=== PATIENT | female | born 1960 | race Caucasian/White ===

== ENCOUNTER 2016-12-28 15:05 | Observation (INO) | payer MEDICARE ==
[~2016-12-28 15:05] MED LIST: LANTUS2P SQ; LISI2.5T3 PO; LORA-474 PO; METF1000 PO; PEDISOL2 OROPHARYNG; REGL5TAB PO; VITA100036 PO
[2016-12-28 17:00] VITALS: BP 164/84; PULSE 80; RESP 21; TEMP 98.4; O2SAT 97
[2016-12-28] MEDS ORDERED: ONDANSETRON HCL 4 MG/2 ML VIAL IVP PRN (18:00)
[2016-12-28] MEDS ORDERED: ACETAMINOPHEN 325 MG TAB PO PRN (18:00)
[2016-12-28] MEDS ORDERED: NALOXONE HCL 0.4 MG/ML AMP IV PUSH PRN (18:00)
[2016-12-28] MEDS ORDERED: SODIUM CHLORIDE 0.9% FLUSH 10 ML FLUSH IV FLUSH PRN (18:00)
--- NOTE | 2016-12-28 18:00 | HHI.HP ---
[facility]Staff Ad[facility] Diagnosis Diagnoses: Chief Complaint: Abdominal pain Travel History International Travel<30 Days: No Contact w/Intl Traveler <30 Da: No Traveled to Known Affected Are: No History of Present Illness This is a pleasant 56 y/o female who was seen at [facility] due to Abdominal pain, Intractable nausea and vomit the patient is having dry heaves, diffuse abdominal pain, cramps and diarrhea, Patient states she thinks she has food poisoning She is having about 5 episodes a day of vomiting and diarrhea. She also reports some decreased urine output and sweating. Her primary doctor is Dr. Bhandari. She was just seen here 2 nights ago and diagnosed with gastroenteritis. the patient states her Nausea, vomit or diarrhea started last Saturday perhaps she had some food left in her fridge after the [place] and she did not have power. Review of Systems Constitutional: DENIES: Fever, Chills, Change in appetite Endocrine: DENIES: Heat/cold intolerance Eyes: DENIES: Blurred vision, Eye pain Gastrointestinal: COMPLAINS OF: Diarrhea, Nausea, Vomiting Except as stated in HPI: all other systems reviewed are Neg Past Family Social History Past Medical History Hypertension Hyperlipidemia DM II Past Surgical History C Section x 2 Reported Medications Reported Meds & Active Scripts Active Pedialyte (Oral Electrolytes) 1 Pam Pam 8 Oz OROPHARYNG Q2HR Ativan (Lorazepam) 1 Mg Tab 1 Mg PO BID PRN Reglan (Metoclopramide HCl) 5 Mg Tab 5 Mg PO QID Reported Vitamin D3 (Cholecalciferol) 1,000 Unit Cap 1,000 Units PO DAILY Lisinopril 2.5 Mg Tab 2.5 Mg PO DAILY Metformin (Metformin HCl) 1,000 Mg Tab 1,000 Mg PO BIDPC With meals Lantus Inj (Insulin Glargine) 1,000 Unit/10 Ml Vial 25 Units SQ HS Allergies: Coded Allergies: bee venom protein (honey bee) (Verified Allergy, Intermediate, 12/28/16) latex (Verified Allergy, Unknown, 12/28/16) Active Ordered Medications Current Medications Medications (Trade) Dose Ordered Sig/Seferino Route Start Time Stop Time Status Last Admin Sodium Chloride 1,000 ml @ 100 mls/hr Q10H IV 12/28/16 18:00 (NS Flush) 2 ml UNSCH PRN IV FLUSH 12/28/16 18:00 (NS Flush) 2 ml BID IV FLUSH 12/28/16 21:00 (Tylenol) 650 mg Q4H PRN PO 12/28/16 18:00 (Zofran Inj) 4 mg Q6H PRN IVP 12/28/16 18:00 (Heparin Inj) 5,000 units Q8H SQ 12/28/16 18:00 (Narcan Inj) 0.4 mg UNSCH PRN IV PUSH 12/28/16 18:00 (Ativan) 1 mg BID PRN PO 12/28/16 18:15 (Prinivil) 2.5 mg DAILY PO 12/29/16 09:00 (NovoLIN R SUPPLEMENTAL SCALE) 1 ACHS SLIDING SCALE SQ 12/28/16 21:00 (Pill Splitter) 1 ea UNSCH PRN OTHER 12/28/16 18:30 Family History Father with CAD. Social History Lives in her house with her and daughter Miss Sunita Rubi Denies any toxic habits. Physical Exam Physical Exam GENERAL: Well developed, Morbid Obese patient. SKIN: Focused skin assessment warm/dry. HEAD: Atraumatic. Normocephalic. EYES: Pupils equal and round. No scleral icterus. No injection or drainage. ENT: No nasal bleeding or discharge. Mucous membranes pink and moist. NECK: Trachea midline. No JVD. CARDIOVASCULAR: Regular rate and rhythm. No murmur appreciated. RESPIRATORY: No accessory muscle use. Clear to auscultation. Breath sounds equal bilaterally. GASTROINTESTINAL: Abdomen soft, obese, with mild diffuse abdominal tenderness palpation. MUSCULOSKELETAL: No obvious deformities. No clubbing. No cyanosis. No edema. NEUROLOGICAL: Awake and alert. No obvious cranial nerve deficits. Motor grossly within normal limits. Normal speech. PSYCHIATRIC: Appropriate mood and affect; insight and judgment normal. Caprini VTE Risk Assessment Caprini VTE Risk Assessment: No/Low Risk (score <= 1) Caprini Risk Assessment Model Point Value = 1 Point Value = 2 Point Value = 3 Point Value = 5 Age 41-60 Minor surgery BMI > 25 kg/m2 Swollen legs Varicose veins or History of unexplained or recurrent spontaneous Oral contraceptives or hormone replacement Sepsis (< 1 month) Serious lung disease, including pneumonia (< 1 month) Abnormal pulmonary function Acute myocardial infarction Congestive heart failure (< 1 month) History of inflammatory bowel disease Medical patient at bed rest Age 61-74 Arthroscopic surgery Major open surgery (> 45 min) Laparoscopic surgery (> 45 min) Malignancy Confined to bed (> 72 hours) Immobilizing plaster cast Central venous access Age >= 75 History of VTE Family history of VTE Factor V Leiden Prothrombin [id number] Lupus anticoagulant Anticardiolipin antibodies Elevated serum homocysteine Heparin-induced thrombocytopenia Other congenital or acquired thrombophilia Stroke (< 1 month) Elective arthroplasty Hip, pelvis, or leg fracture Acute spinal cord injury (< 1 month) Prophylaxis Regimen Total Risk Factor Score Risk Level Prophylaxis Regimen 0-1 Low Early ambulation 2 Moderate Order ONE of the following: *Sequential Compression Device (SCD) *Heparin 5000 units SQ BID 3-4 Higher Order ONE of the following medications: *Heparin 5000 units SQ TID *Enoxaparin/Lovenox 40 mg SQ daily (WT < 150 kg, CrCl > 30 mL/min) *Enoxaparin/Lovenox 30 mg SQ daily (WT < 150 kg, CrCl > 10-29 mL/min) *Enoxaparin/Lovenox 30 mg SQ BID (WT < 150 kg, CrCl > 30 mL/min) AND/OR *Sequential Compression Device (SCD) 5 or more Highest Order ONE of the following medications: *Heparin 5000 units SQ TID (Preferred with Epidurals) *Enoxaparin/Lovenox 40 mg SQ daily (WT < 150 kg, CrCl > 30 mL/min) *Enoxaparin/Lovenox 30 mg SQ daily (WT < 150 kg, CrCl > 10-29 mL/min) *Enoxaparin/Lovenox 30 mg SQ BID (WT < 150 kg, CrCl > 30 mL/min) AND *Sequential Compression Device (SCD) Assessment and Plan Assessment and Plan Hypertensive Urgency systolic 230 1. Intractable nausea and vomit and diarrhea, will give Supportive care, IV fluids NPO Gastric protection and follow laboratory, replace Electrolytes as needed 2. Hypertensive Urgency in a patient with Hypertension will continue Home medicines and give Clonidine as needed 3. Hyperlipidemia will follow Lipid profile 4. DM II on sliding scale, she is NPO, Hemoglobin A1C 5. Morbid Obesity strongly recommended diet and exercise. DVT prophylaxis with Heparin complete laboratory and follow Code Status Full Code. Discussed Condition With Doctor Marko Almodovar from [facility] Patient and her Daughter Miss Sunita Rubi all questions answered to the best of my abilities. Jw Sena MD Dec 28, 2016 18:00
[2016-12-28] MEDS ORDERED: LORazepam 1 MG TAB PO PRN (18:15)
[2016-12-28] MEDS ORDERED: PILL SPLITTER OTHER PRN (18:30)
[2016-12-28] MEDS: HEPARIN SODIUM - SQ 10,000 UNITS/ML VIAL SQ SCH (18:34)
[2016-12-28] MEDS: SODIUM CHLOR 0.9% 1000 ML INJ 1,000 ML IV SCH (18:34)
[2016-12-28] MEDS ORDERED: cloNIDine HCL 0.1 MG TAB PO PRN (18:45)
[2016-12-28 20:00] VITALS: BP 122/58; PULSE 66; PULSE 71; RESP 16; TEMP 99.6; O2SAT 94
[2016-12-28 20:54] LABS: HDL CHOLESTEROL 39.5 MG/DL (40.0-60.0); LDL CHOLESTEROL 63 MG/DL (0-99)
[2016-12-28 21:00] VITALS: PULSE 68
[2016-12-28] MEDS: INSULIN NovoLIN REGULAR SUPPLEMENTAL SCALE SQ SCH (21:00)
[2016-12-28] MEDS: SODIUM CHLORIDE 0.9% FLUSH 10 ML FLUSH IV FLUSH SCH (21:05)
[2016-12-28] MEDS: SUCRALFATE 1 GM TAB PO SCH (21:05)
[2016-12-28] MEDS: PANTOPRAZOLE SODIUM 40 MG VIAL IV PUSH SCH (21:06)
[2016-12-28 21:55] LABS: HEMOGLOBIN A1a 1.1 %; HEMOGLOBIN Ao 82.7 %; HEMOGLOBIN F 1.2 %; HEMOGLOBIN LA1C 2.4 %; HEMOGLOBIN P3 4.4 %
[2016-12-28 22:00] VITALS: PULSE 72
[2016-12-28 23:00] VITALS: PULSE 68
[2016-12-29] VITALS (15 sets, daily range): BP systolic 90–147; BP diastolic 52–65; PULSE 51–74; RESP 16–20; TEMP 97.8–98.7; O2SAT 90–98
[2016-12-29] MEDS: HEPARIN SODIUM - SQ 10,000 UNITS/ML VIAL SQ SCH ×2 (01:43→08:21)
[2016-12-29] MEDS: SODIUM CHLOR 0.9% 1000 ML INJ 1,000 ML IV SCH (01:43)
[2016-12-29 06:06] LABS: AUTOMATED NEUTROPHIL # 6.3 TH/MM3 (1.8-7.7); BASOPHIL # 0.1 TH/MM3 (0-0.2); BASOPHIL % 0.6 % (0.0-2.0); EOSINOPHIL # 0.1 TH/MM3 (0-0.4); EOSINOPHIL % 0.8 % (0.0-4.0); HEMATOCRIT 37.5 % (35.0-46.0); HEMO FLAGS DIFF FINAL; LYMPH % 36.7 % (9.0-44.0); LYMPHOCYTE # 4.5 TH/MM3 (1.0-4.8); MEAN CELL VOLUME 93.4 FL (80.0-100.0); MEAN CORPUSCULAR HEMOGLOBIN 30.9 PG (27.0-34.0); MEAN CORPUSCULAR HGB CONC 33.1 % (32.0-36.0); MONO % 10.5 % (0.0-8.0); NEUT % 51.4 % (16.0-70.0); PLATELET COUNT 311 TH/MM3 (150-450); RED BLOOD COUNT 4.01 MIL/MM3 (4.00-5.30); RED CELL DISTRIBUTION WIDTH 14.9 % (11.6-17.2); WHITE BLOOD COUNT 12.2 TH/MM3 (4.0-11.0)
[2016-12-29] MEDS: PANTOPRAZOLE SODIUM 40 MG VIAL IV PUSH SCH (06:27)
[2016-12-29 07:50] LABS: ALT (GPT) 21 U/L (10-53); ANION GAP 6 MEQ/L (5-15); AST (GOT) 12 U/L (15-37); BICARBONATE 27.2 MEQ/L (21.0-32.0); BLOOD UREA NITROGEN 13 MG/DL (7-18); CHLORIDE 107 MEQ/L (98-107); GLOMERULAR FILTRATION RATE 69 ML/MIN (>89); POTASSIUM 3.5 MEQ/L (3.5-5.1); SODIUM (NA) 140 MEQ/L (136-145)
[2016-12-29 07:52] LABS: ALKALINE PHOSPHATASE 62 U/L (45-117); TOTAL BILIRUBIN ADULT 0.8 MG/DL (0.2-1.0)
[2016-12-29] MEDS: INSULIN NovoLIN REGULAR SUPPLEMENTAL SCALE SQ SCH ×2 (08:00→12:00)
[2016-12-29] MEDS: SUCRALFATE 1 GM TAB PO SCH ×2 (08:20→12:16)
[2016-12-29] MEDS: SODIUM CHLORIDE 0.9% FLUSH 10 ML FLUSH IV FLUSH SCH (08:20)
[2016-12-29] MEDS ORDERED: LISINOPRIL 5 MG TAB PO SCH (09:00)
--- NOTE | 2016-12-29 11:38 | HHI.PR ---
Subjective Remarks This is a pleasant 56 y/o female who was seen at [facility] due to Abdominal pain, Intractable nausea and vomit the patient is having dry heaves, diffuse abdominal pain, cramps and diarrhea, Patient states she thinks she has food poisoning She is having about 5 episodes a day of vomiting and diarrhea. She also reports some decreased urine output and sweating. Her primary doctor is Dr. Bhandari. She was just seen here 2 nights ago and diagnosed with gastroenteritis. the patient states her Nausea, vomit or diarrhea started last Saturday perhaps she had some food left in her fridge after the [place] and she did not have power. 12/29: Seen in her bedroom stable in the presence of her Daughter and another relative, replacing potassium she had Potassium level 3.5, will advance diet and discharge Home, her blood pressure is controlled. No nausea, vomit or diarrhea. Objective Vital Signs Date Time Temp Pulse Resp B/P (MAP) Pulse Ox O2 Delivery O2 Flow Rate FiO2 12/29/16 11:00 62 12/29/16 11:00 98.5 63 20 90/65 (73) 98 12/29/16 10:00 57 12/29/16 09:57 97.8 59 20 147/60 (89) 95 12/29/16 09:00 60 12/29/16 08:00 68 12/29/16 07:00 51 12/29/16 06:00 70 12/29/16 05:00 60 12/29/16 04:00 65 12/29/16 04:00 98.2 63 16 122/56 (78) 93 12/29/16 03:00 74 12/29/16 02:00 58 12/29/16 01:00 62 12/29/16 00:00 98.7 66 16 112/52 (72) 90 12/29/16 00:00 62 12/28/16 23:00 68 12/28/16 22:00 72 12/28/16 21:00 68 12/28/16 20:00 66 12/28/16 20:00 99.6 71 16 122/58 (79) 94 12/28/16 17:00 98.4 80 21 164/84 (110) 97 I/O 12/28/16 12/28/16 12/28/16 12/29/16 12/29/1612/29/17 07:00 15:00 23:00 07:00 15:00 23:00 Intake Total 1399 ml Balance 1399 ml Intake Oral 240 ml IV Total 1159 ml # Voids 3 Result Diagram: 12/29/16 0410 12/29/16 0410 Procedures None Other Results Laboratory Tests Test 12/28/16 19:48 12/29/16 01:08 12/29/16 04:10 Hemoglobin A1c 6.6 % Triglycerides Level 95 MG/DL Cholesterol Level 121 MG/DL LDL Cholesterol 63 MG/DL HDL Cholesterol 39.5 MG/DL Cholesterol/HDL Ratio 3.06 RATIO Thyroid Stimulating Hormone 3rd Gen 0.544 uIU/ML Total Creatine Kinase 116 U/L Troponin I 0.03 NG/ML White Blood Count 12.2 TH/MM3 Red Blood Count 4.01 MIL/MM3 Hemoglobin 12.4 GM/DL Hematocrit 37.5 % Mean Corpuscular Volume 93.4 FL Mean Corpuscular Hemoglobin 30.9 PG Mean Corpuscular Hemoglobin Concent 33.1 % Red Cell Distribution Width 14.9 % Platelet Count 311 TH/MM3 Mean Platelet Volume 8.1 FL Neutrophils (%) (Auto) 51.4 % Lymphocytes (%) (Auto) 36.7 % Monocytes (%) (Auto) 10.5 % Eosinophils (%) (Auto) 0.8 % Basophils (%) (Auto) 0.6 % Neutrophils # (Auto) 6.3 TH/MM3 Lymphocytes # (Auto) 4.5 TH/MM3 Monocytes # (Auto) 1.3 TH/MM3 Eosinophils # (Auto) 0.1 TH/MM3 Basophils # (Auto) 0.1 TH/MM3 CBC Comment DIFF FINAL Differential Comment Blood Urea Nitrogen 13 MG/DL Creatinine 0.85 MG/DL Random Glucose 81 MG/DL Total Protein 6.4 GM/DL Albumin 3.1 GM/DL Calcium Level 8.3 MG/DL Alkaline Phosphatase 62 U/L Aspartate Amino Transf (AST/SGOT) 12 U/L Alanine Aminotransferase (ALT/SGPT) 21 U/L Total Bilirubin 0.8 MG/DL Sodium Level 140 MEQ/L Potassium Level 3.5 MEQ/L Chloride Level 107 MEQ/L Carbon Dioxide Level 27.2 MEQ/L Anion Gap 6 MEQ/L Estimat Glomerular Filtration Rate 69 ML/MIN Objective Remarks GENERAL: Well developed, Morbid Obese patient. SKIN: Focused skin assessment warm/dry. HEAD: Atraumatic. Normocephalic. EYES: Pupils equal and round. No scleral icterus. No injection or drainage. ENT: No nasal bleeding or discharge. Mucous membranes pink and moist. NECK: Trachea midline. No JVD. CARDIOVASCULAR: Regular rate and rhythm. No murmur appreciated. RESPIRATORY: No accessory muscle use. Clear to auscultation. Breath sounds equal bilaterally. GASTROINTESTINAL: Abdomen soft, obese, with mild diffuse abdominal tenderness palpation. MUSCULOSKELETAL: No obvious deformities. No clubbing. No cyanosis. No edema. NEUROLOGICAL: Awake and alert. No obvious cranial nerve deficits. Motor grossly within normal limits. Normal speech. PSYCHIATRIC: Appropriate mood and affect; insight and judgment normal. Medications and IVs Current Medications Medications (Trade) Dose Ordered Sig/Seferino Route Start Time Stop Time Status Last Admin Sodium Chloride 1,000 ml @ 100 mls/hr Q10H IV 12/28/16 18:00 12/29/16 01:43 (NS Flush) 2 ml UNSCH PRN IV FLUSH 12/28/16 18:00 (NS Flush) 2 ml BID IV FLUSH 12/28/16 21:00 12/29/16 08:20 (Tylenol) 650 mg Q4H PRN PO 12/28/16 18:00 (Zofran Inj) 4 mg Q6H PRN IVP 12/28/16 18:00 (Heparin Inj) 5,000 units Q8H SQ 12/28/16 18:00 12/29/16 08:21 (Narcan Inj) 0.4 mg UNSCH PRN IV PUSH 12/28/16 18:00 (Ativan) 1 mg BID PRN PO 12/28/16 18:15 (Prinivil) 2.5 mg DAILY PO 12/29/16 09:00 12/29/16 08:20 (NovoLIN R SUPPLEMENTAL SCALE) 1 ACHS SLIDING SCALE SQ 12/28/16 21:00 (Pill Splitter) 1 ea UNSCH PRN OTHER 12/28/16 18:30 (Catapres) 0.1 mg Q6H PRN PO 12/28/16 18:45 (Protonix Inj) 40 mg Q12H IV PUSH 12/28/16 19:00 12/29/16 06:27 (Carafate) 1 gm ACHS PO 12/28/16 21:00 12/29/16 08:20 A/P Assessment and Plan 1. Intractable nausea and vomit and diarrhea, will give Supportive care, IV fluids NPO Gastric protection and follow laboratory, replace Electrolytes as needed, Improved. 2. Hypertensive Urgency in a patient with Hypertension will continue Home medicines and give Clonidine as needed, Improved 3. Hyperlipidemia will follow Lipid profile 4. DM II on sliding scale, she is NPO, Hemoglobin A1C 6.6 5. Morbid Obesity strongly recommended diet and exercise. DVT prophylaxis with Heparin Code Status Full Code. Discussed Condition With Patient and her Daughter Miss Sunita Rubi all questions answered to the best of my abilities. Her other relative and Nurse Polly in the room. Discharge Planning Discharge Home today. Jw Sena MD Dec 29, 2016 11:38
[2016-12-29] MEDS ORDERED: POTASSIUM CHLORIDE 20 MEQ CONTROLLED RELEASE TAB PO ONE (13:00)
[2016-12-29] MEDS ORDERED: CARA1TAB6 PO (13:03)
[2016-12-29] MEDS ORDERED: PROT40TA PO (13:03)
--- NOTE | 2016-12-29 13:07 | HHI.DS ---
Discharge Summary Admission Date Dec 28, 2016 at 16:52 Discharge Date: Dec 29, 2016 Admitting Diagnosis (1) Gastroenteritis ICD Code: K52.9 - Noninfective gastroenteritis and colitis, unspecified Diagnosis: Principal Procedures None Brief History - From Admission This is a pleasant 56 y/o female who was seen at [facility] due to Abdominal pain, Intractable nausea and vomit the patient is having dry heaves, diffuse abdominal pain, cramps and diarrhea, Patient states she thinks she has food poisoning She is having about 5 episodes a day of vomiting and diarrhea. She also reports some decreased urine output and sweating. Her primary doctor is Dr. Bhandari. She was just seen here 2 nights ago and diagnosed with gastroenteritis. the patient states her Nausea, vomit or diarrhea started last Saturday perhaps she had some food left in her fridge after the [place] and she did not have power. CBC/BMP: 12/29/16 0410 12/29/16 0410 Significant Findings Laboratory Tests Test 12/28/16 19:48 12/29/16 01:08 12/29/16 04:10 Hemoglobin A1c 6.6 % (4.3-6.0) HDL Cholesterol 39.5 MG/DL (40.0-60.0) White Blood Count 12.2 TH/MM3 (4.0-11.0) Monocytes (%) (Auto) 10.5 % (0.0-8.0) Monocytes # (Auto) 1.3 TH/MM3 (0-0.9) Albumin 3.1 GM/DL (3.4-5.0) Calcium Level 8.3 MG/DL (8.5-10.1) Aspartate Amino Transf (AST/SGOT) 12 U/L (15-37) Estimat Glomerular Filtration Rate 69 ML/MIN (>89) Imaging No new imaging studies. PE at Discharge GENERAL: Well developed, Morbid Obese patient. SKIN: Focused skin assessment warm/dry. HEAD: Atraumatic. Normocephalic. EYES: Pupils equal and round. No scleral icterus. No injection or drainage. ENT: No nasal bleeding or discharge. Mucous membranes pink and moist. NECK: Trachea midline. No JVD. CARDIOVASCULAR: Regular rate and rhythm. No murmur appreciated. RESPIRATORY: No accessory muscle use. Clear to auscultation. Breath sounds equal bilaterally. GASTROINTESTINAL: Abdomen soft, obese, with mild diffuse abdominal tenderness palpation. MUSCULOSKELETAL: No obvious deformities. No clubbing. No cyanosis. No edema. NEUROLOGICAL: Awake and alert. No obvious cranial nerve deficits. Motor grossly within normal limits. Normal speech. PSYCHIATRIC: Appropriate mood and affect; insight and judgment normal. Hospital Course This is a pleasant 56 y/o female who was seen at [facility] due to Abdominal pain, Intractable nausea and vomit the patient is having dry heaves, diffuse abdominal pain, cramps and diarrhea, Patient states she thinks she has food poisoning She is having about 5 episodes a day of vomiting and diarrhea. She also reports some decreased urine output and sweating. Her primary doctor is Dr. Bhandari. She was just seen here 2 nights ago and diagnosed with gastroenteritis. the patient states her Nausea, vomit or diarrhea started last Saturday perhaps she had some food left in her fridge after the [place] and she did not have power. 12/29: Seen in her bedroom stable in the presence of her Daughter and another relative, replacing potassium she had Potassium level 3.5, will advance diet and discharge Home, her blood pressure is controlled. No nausea, vomit or diarrhea. Assessment and Plan 1. Intractable nausea and vomit and diarrhea, Probable Gastroenteritis secondary to Food poisoning. Given supportive care with IV fluids, Improved and now ready to go home on Gastric protection, Protonix and Carafate. 2. Hypertensive Urgency in a patient with Hypertension will continue Home medicines and give Clonidine as needed, Improved 3. Hyperlipidemia will follow Lipid profile 4. DM II on sliding scale, she is NPO, Hemoglobin A1C 6.6 5. Morbid Obesity strongly recommended diet and exercise. DVT prophylaxis with Heparin Code Status Full Code. Discussed Condition With Patient and her Daughter Miss Sunita Rubi all questions answered to the best of my abilities. Her other relative and Nurse Miss Matias in the room. Discharge Planning Discharge Home today. Pt Condition on Discharge: Good Discharge Disposition: Discharge Home Discharge Time: <= 30 minutes Discharge Instructions DIET: Follow Instructions for: Heart Healthy Diet, Diabetic Diet Activities you can perform: Regular-No Restrictions Jw Sena MD Dec 29, 2016 13:07
== END 2016-12-29 13:39 | disposition home or self-care (01) ==
LOC: NEDDLT 16:42 → INTOOBSV 16:52 → HCIS 16:52
PROVIDERS: ADMIT Internal Medicine; ATTEND Internal Medicine
DX: K52.9 Noninfective gastroenteritis and colitis, unspecified (principal); A05.9 Bacterial foodborne intoxication, unspecified; I16.0 Hypertensive urgency; R11.2 Nausea with vomiting, unspecified; R10.9 Unspecified abdominal pain; E78.5 Hyperlipidemia, unspecified; E11.9 Type 2 diabetes mellitus without complications; E66.01 Morbid (severe) obesity due to excess calories; Z68.25 Body mass index [BMI] 25.0-25.9, adult; L50.9 Urticaria, unspecified; I10 Essential (primary) hypertension; Z79.4 Long term (current) use of insulin
CPT/HCPCS: 80053; 80061; 81001; 82550; 82948; 83036; 83690; 84443; 84484; 85025; 87086; 96361; 96372; 96374; 96375; 96376; 99285; C9113; G0378; J0360; J1644; J2405; J7030